=== PATIENT | male | born 1980 | race Caucasian/White ===

== ENCOUNTER → 2021-05-22 | Outpatient (CLI) | payer OTHER | LOC: MHCPAIN 10:43 | DX: M47.817 Spondylosis without myelopathy or radiculopathy, lumbosacral region (principal); M54.16 Radiculopathy, lumbar region; M53.3 Sacrococcygeal disorders, not elsewhere classified | CPT/HCPCS: G0463 ==

== ENCOUNTER → 2021-07-27 | Outpatient (CLI) | payer OTHER | LOC: MHCPAIN 12:25 | DX: M47.817 Spondylosis without myelopathy or radiculopathy, lumbosacral region (principal); M54.16 Radiculopathy, lumbar region; M53.3 Sacrococcygeal disorders, not elsewhere classified | CPT/HCPCS: G0463; J1100; Q9967 ==

== ENCOUNTER → 2021-08-07 | Outpatient (CLI) | payer OTHER | LOC: MHCPAIN 15:38 | DX: M47.817 Spondylosis without myelopathy or radiculopathy, lumbosacral region (principal); M53.3 Sacrococcygeal disorders, not elsewhere classified; M54.16 Radiculopathy, lumbar region | CPT/HCPCS: G0463 ==

== ENCOUNTER → 2021-08-17 | Outpatient (CLI) | payer OTHER | LOC: MHCPAIN 08:12 | DX: M47.817 Spondylosis without myelopathy or radiculopathy, lumbosacral region (principal); M54.17 Radiculopathy, lumbosacral region; M53.3 Sacrococcygeal disorders, not elsewhere classified | CPT/HCPCS: J1100; Q9967 ==

== ENCOUNTER → 2021-08-25 | Outpatient (CLI) | payer OTHER | LOC: COL.RAD 08:34 | DX: M76.12 Psoas tendinitis, left hip (principal); M76.11 Psoas tendinitis, right hip | CPT/HCPCS: J3301; Q9967 ==

== ENCOUNTER → 2021-09-05 | Outpatient (CLI) | payer OTHER | LOC: MHCPAIN 12:50 | DX: M47.817 Spondylosis without myelopathy or radiculopathy, lumbosacral region (principal); M53.3 Sacrococcygeal disorders, not elsewhere classified; M54.16 Radiculopathy, lumbar region | CPT/HCPCS: G0463 ==

== ENCOUNTER → 2021-09-07 | Outpatient (CLI) | payer OTHER | LOC: MHCPAIN 12:10 | DX: M47.817 Spondylosis without myelopathy or radiculopathy, lumbosacral region (principal); M53.3 Sacrococcygeal disorders, not elsewhere classified; M54.16 Radiculopathy, lumbar region | CPT/HCPCS: J1100; Q9967 ==

== ENCOUNTER → 2021-09-19 | Outpatient (CLI) | payer OTHER | LOC: MHCPAIN 08:52 | DX: M47.817 Spondylosis without myelopathy or radiculopathy, lumbosacral region (principal); M53.3 Sacrococcygeal disorders, not elsewhere classified; M54.50 Low back pain, unspecified | CPT/HCPCS: G0463 ==

== ENCOUNTER → 2021-10-05 | Outpatient (CLI) | payer OTHER | LOC: MHCPAIN 11:39 | DX: M47.817 Spondylosis without myelopathy or radiculopathy, lumbosacral region (principal); M54.50 Low back pain, unspecified; M53.3 Sacrococcygeal disorders, not elsewhere classified ==

== ENCOUNTER → 2021-10-10 | Outpatient (CLI) | payer OTHER | LOC: MHCPAIN 08:04 | DX: M47.896 Other spondylosis, lumbar region (principal); M53.3 Sacrococcygeal disorders, not elsewhere classified; M54.16 Radiculopathy, lumbar region; G89.29 Other chronic pain | CPT/HCPCS: G0463 ==